=== PATIENT | male | born 1990 | race Caucasian/White ===

== ENCOUNTER → 2023-11-01 | Outpatient (REF) | payer BC | LOC: M SMT 13:16 | PROVIDERS: ATTEND Urology | DX: Z30.2 Encounter for sterilization (principal) ==

== ENCOUNTER → 2023-11-01 | Outpatient (REF) | payer BC | LOC: M LABSMT 14:45 | PROVIDERS: ATTEND Urology | DX: Z30.2 Encounter for sterilization (principal) ==